=== PATIENT | female | born 2000 | race Caucasian/White ===

== ENCOUNTER 2021-08-30 19:35 | Emergency (ER) | payer BC, MEDICAID ==
--- NOTE | 2021-08-30 20:02 | EDM.PDOC ---
ED HPI GENERAL MEDICAL PROBLEM - General Chief Complaint: Flank Pain Stated Complaint: R SIDE FLANK PAIN Time Seen by Provider: 08/30/21 19:54 - History of Present Illness INITIAL COMMENTS - FREE TEXT/NARRATIVE: 21-year-old female presents the emergency room with abdominal pain. This pain has been getting worse over the last couple days it seems to be more on the right side. She has burning and frequency with urination. She is not aware of any fevers or chills no significant nausea or vomiting. The patient believes she has had 1 urinary tract infection in the past but cannot remember the exact details of it. Patient has no prior abdominal surgeries. She recently found out she has an abnormal Pap smear Right Flank Pain Score (Numeric/FACES): 8 - Related Data Allergies Allergy/AdvReac Type Severity Reaction Status Date / Time Penicillins Allergy Rash Verified 08/30/21 19:51 codeine AdvReac Vomiting Verified 08/30/21 19:51 Home Meds: Home Meds Acetaminophen [Tylenol] 650 mg PO Q4H PRN tablet 08/19/19 [Rx] Ibuprofen [Motrin] 600 mg PO Q4H PRN tablet 08/19/19 [Rx] Cefdinir [Omnicef] 300 mg PO BID #14 cap 08/30/21 [Rx] Past Medical History HEENT History: Reports: Other (See Below) Other HEENT History: deviated septum; unable to breathe from L nare Cardiovascular History: Reports: None Respiratory History: Reports: Asthma Other Respiratory History: exercise induced Gastrointestinal History: Reports: GERD, Hemorrhoids, Other (See Below) Other Gastrointestinal History: constipation/diarrhea w/ Genitourinary History: Reports: Other (See Below) Other Genitourinary History: Born with only single kidney 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: Musculoskeletal History: Reports: None Neurological History: Reports: None Psychiatric History: Reports: None Endocrine/Metabolic History: Reports: None Hematologic History: Reports: None Immunologic History: Reports: None Oncologic (Cancer) History: Reports: None Dermatologic History: Reports: None - Infectious Disease History Infectious Disease History: Reports: None - Past Surgical History Head Surgeries/Procedures: Reports: None HEENT Surgical History: Reports: Naso-Sinus Surgery, Other (See Below) Other HEENT Surgeries/Procedures: sinus surgery age 8yo, ear tubes placed as a toddler, and wisdom teeth extracted 2years ago Cardiovascular Surgical History: Reports: None Respiratory Surgical History: Reports: None GI Surgical History: Reports: None Female Surgical History: Reports: None Endocrine Surgical History: Reports: None Neurological Surgical History: Reports: None Musculoskeletal Surgical History: Reports: None Oncologic Surgical History: Reports: None Dermatological Surgical History: Reports: None Social & Family History - Family History Family Medical History: No Pertinent Family History - Caffeine Use Caffeine Use: Reports: None ED ROS GENERAL - Review of Systems Review Of Systems: See Below Constitutional: Reports: No Symptoms HEENT: Reports: No Symptoms Respiratory: Reports: No Symptoms Cardiovascular: Reports: No Symptoms GI/Abdominal: Reports: Abdominal Pain. Denies: Constipation, Diarrhea, Nausea, Vomiting : Reports: Dysuria, Frequency, Pain Musculoskeletal: Reports: No Symptoms Neurological: Reports: No Symptoms ED EXAM, GENERAL - Physical Exam Exam: See Below Exam Limited By: No Limitations General Appearance: Alert, No Apparent Distress Head: Atraumatic, Normocephalic Neck: Normal Inspection, Supple, Non-Tender, Full Range of Motion Respiratory/Chest: No Respiratory Distress, Lungs Clear, Normal Breath Sounds Cardiovascular: Regular Rate, Rhythm, No Edema, No Rub GI/Abdominal: Normal Bowel Sounds, Soft, Rebound (Questionable rebound tenderness will reexamine shortly.), Tender (She is got some vague tenderness in the right side of her abdomen mostly the right lower quadrant). No: Distended, Guarding, Rigid Course - Vital Signs Last Recorded V/S: Last Vital Signs Temp 37.2 C 08/30/21 19:44 Pulse 95 08/30/21 19:44 Resp 20 08/30/21 19:44 BP 120/79 08/30/21 19:44 Pulse Ox 100 08/30/21 19:44 - Orders/Labs/Meds Orders: Active Orders 24 hr Category Date Time Status CULTURE URINE [MREF] Stat Lab 08/30/21 19:55 Received Labs: Laboratory Tests 08/30/21 08/30/21 08/30/21 Range/Units 19:55 20:30 20:30 WBC 11.16 H (3.98-10.04) K/mm3 RBC 4.09 (3.98-5.22) M/mm3 Hgb 13.1 (11.2-15.7) gm/dl Hct 39.7 (34.1-44.9) % MCV 97.1 H D (79.4-94.8) fl MCH 32.0 (25.6-32.2) pg MCHC 33.0 (32.2-35.5) g/dl RDW Std Deviation 45.0 (36.4-46.3) fL Plt Count 201 (182-369) K/mm3 MPV 10.2 (9.4-12.3) fl Neut % (Auto) 69.5 (34.0-71.1) % Lymph % (Auto) 19.2 L (19.3-51.7) % Thurston % (Auto) 10.6 (4.7-12.5) % Eos % (Auto) 0.4 L (0.7-5.8) Baso % (Auto) 0.1 (0.1-1.2) % Neut # (Auto) 7.77 H (1.56-6.13) K/mm3 Lymph # (Auto) 2.14 (1.18-3.74) K/mm3 Thurston # (Auto) 1.18 H (0.24-0.36) K/mm3 Eos # (Auto) 0.04 (0.04-0.36) K/mm3 Baso # (Auto) 0.01 (0.01-0.08) K/mm3 Sodium 140 (136-145) mEq/L Potassium 3.7 (3.5-5.1) mEq/L Chloride 104 (98-107) mEq/L Carbon Dioxide 27 (21-32) mEq/L Anion Gap 12.7 (5-15) BUN 18 (7-18) mg/dL Creatinine 0.9 (0.55-1.02) mg/dL Est Cr Clr Drug Dosing 81.11 mL/min Estimated GFR (MDRD) > 60 (>60) mL/min BUN/Creatinine Ratio 20.0 H (14-18) Glucose 85 (70-99) mg/dL Calcium 8.9 (8.5-10.1) mg/dL Total Bilirubin 0.8 (0.2-1.0) mg/dL AST 14 L (15-37) U/L ALT 20 (14-59) U/L Alkaline Phosphatase 78 (46-116) U/L Total Protein 6.5 (6.4-8.2) g/dl Albumin 3.8 (3.4-5.0) g/dl Globulin 2.7 gm/dL Albumin/Globulin Ratio 1.4 (1-2) Urine Color Light yellow (Yellow) Urine Appearance Slt cloudy H (Clear) Urine pH 7.0 (5.0-8.0) Ur Specific Stanton 1.025 (1.005-1.030) Urine Protein Negative (Negative) Urine Glucose (UA) Negative (Negative) Urine Ketones Negative (Negative) Urine Occult Blood Trace-intact H (Negative) Urine Nitrite Negative (Negative) Urine Bilirubin Negative (Negative) Urine Urobilinogen 0.2 (0.2-1.0) Ur Leukocyte Esterase 1+ H (Negative) Urine RBC 0-5 (0-5) /hpf Urine WBC 20-30 H (0-5) /hpf Ur Squamous Epith Cells 0-5 (0-5) /hpf Urine Bacteria Moderate H (FEW) /hpf Urine Mucus Rare (FEW) /hpf - Re-Assessments/Exams Free Text/Narrative Re-Assessment/Exam: 08/30/21 21:32 Laboratory evaluation shows a minimally elevated white count. Chemistries are for the most part unremarkable. Urinalysis is suggestive of infectious process. Her exam is a little concerning with some questionable rebound tenderness right lower quadrant pain this could be from UTI but I cannot exclude the possibility of an appendix if it is an appendix is very early. I did discuss this with the patient and she voices understanding did offer outpatient treatment for the UTI with agreement to return in 24 hours if not better sooner if getting worse. And offered another option that includes CAT scan at this point. The patient clearly understands both options and would like to hold off on the CT at this point. But she agrees to return immediately if she gets worse or in 24 hours if not significantly better. The patient will be started on Omnicef 300 mg twice daily for 7 days. This will be sent electronically to the clinic pharmacy the patient does have an allergy to penicillin apparently she has a rash with the penicillin. I talked to the patient in detail about the potential cross-reactivity, albeit low risk, and she agrees to give this a try. Departure - Departure Time of Disposition: 21:40 Disposition: Home, Self-Care 01 Clinical Impression: Abdominal pain, Urinary tract infection - Discharge Information Referrals: PCP,None [Primary Care Provider] - Forms: ED Department Discharge Additional Instructions: Return to the emergency room with any questions problems or worsening symptoms. Return if not significantly better in 24 hours, sooner if getting worse. Return immediately with worsening pain or development of nausea vomiting. Push lots of fluids. Follow-up in the hospital clinic in 8 to 10 days for recheck. Clinic phone number is [phone]. You been started on cefdinir, or Omnicef this is an antibiotic your first dose was given here in the emergency room. 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 Sepsis Event Note (ED) - Evaluation Sepsis Screening Result: No Definite Risk - Focused Exam Vital Signs: Vital Signs Temp Pulse Resp BP Pulse Ox 08/30/21 19:44 37.2 C 95 20 120/79 100 - My Orders Last 24 Hours: My Active Orders 08/30/21 19:55 CULTURE URINE [MREF] Stat - Assessment/Plan Last 24 Hours: My Active Orders 08/30/21 19:55 CULTURE URINE [MREF] Stat
[2021-08-30] MEDS ORDERED: Cefdinir 300 MG Cap PO ONE (21:34)
== END 2021-08-30 21:53 | disposition home or self-care (01) ==
LOC: JD.ED 19:35
DX: N39.0 Urinary tract infection, site not specified (principal); K21.9 Gastro-esophageal reflux disease without esophagitis; Z88.0 Allergy status to penicillin; Z88.5 Allergy status to narcotic agent
CPT/HCPCS: 36415; 80053; 81001; 85025; 87086; 99284; A9270